=== PATIENT | male | born 1930 | race Caucasian/White ===

== ENCOUNTER 2021-02-13 23:45 | Observation (INO) ==
[2021-02-14] MEDS ORDERED: SODIUM CHLORIDE 0.9% 1000ML 1,000 ML IV SCH ×2 (00:30→06:19)
[2021-02-14 00:31] LABS: Basophils # (auto) 0.03 K/uL (0-0.2); Basophils % (auto) 0.5 %; Eosinophils # (auto) 0.36 K/uL (0-0.5); Eosinophils % (auto) 5.5 %; Hematocrit (blood only) 39.8 % (42-52); Hemoglobin 12.9 g/dL (14.0-18.0); Immature Granulocytes # (auto) 0.02 K/uL (0.00-0.02); Immature Granulocytes % (auto) 0.3 %; Lymphocytes # (auto) 1.34 K/uL (1.2-3.4); Lymphocytes % (auto) 20.3 %; Mean Corpuscular Hemoglobin 31.5 pg (25-34); Mean Corpuscular Hgb Conc 32.4 g/dL (32-36); Mean Corpuscular Volume 97.1 fL (80-100); Mean Platelet Volume 9.5 fL (7.4-10.4); Monocytes # (auto) 0.79 K/uL (0.11-0.59); Neutrophils # (auto) 4.06 K/uL (1.4-6.5); Neutrophils % (auto) 61.4 %; Platelet Count 307 K/uL (130-400); RDW Coefficient of Variation 15.2 % (11.5-14.5); RDW Standard Deviation 53.1 fL (36.4-46.3)
--- NOTE | 2021-02-14 00:40 | Emergency Department Note ---
History of Present Illness General Chief complaint: Confusion Stated complaint: AMS Time Seen by Provider: 02/13/21 23:55 Source: patient and EMS Mode of arrival: EMS Limitations: no limitations History of Present Illness Provider complaint: episode of slurred speech Associated symptoms: + denies other symptoms Treatments prior to arrival: none This is an 89-year-old male brought in by EMS after an episode of slurred speech at home. Patient states he knew what he wanted to tell his family member however he could not get the words out appropriately. Family reported to EMS this lasted 20 to 30 minutes and then seem to resolve by the time of EMS arrival. EMS reports his speech was clear for them throughout. They found no other evidence of strokelike symptoms. No significant hypertension. He states he feels well now. No prior similar episodes. No hx of CVA/TIA. Pt seen during a time of high acuity and national emergency pandemic while wearing PPE. Home Medications Medication Instructions Recorded Confirmed Type acetaminophen 650 mg 650 mg PO Q8H PRN 02/14/21 02/14/21 History tablet,extended release (Tylenol Arthritis Pain) amoxicillin 500 mg capsule 2,000 mg PO UD 02/14/21 02/14/21 History buspirone 5 mg tablet 5 mg PO BID 02/14/21 02/14/21 History calcium carbonate 600 mg calcium 600 mg PO DAILY 02/14/21 02/14/21 History (1,500 mg) tablet cholecalciferol (vitamin D3) 25 25 mcg PO DAILY 02/14/21 02/14/21 History mcg (1,000 unit) tablet (Vitamin D3) ciprofloxacin 0.3 %-dexamethasone 4 drp OTIC (EAR) BID PRN 02/14/21 02/14/21 His tory 0.1 % ear drops,suspension (Ciprodex) famotidine 20 mg tablet (Pepcid) 20 mg PO BID 02/14/21 02/14/21 History ferrous sulfate 325 mg (65 mg 325 mg PO DAILY 02/14/21 02/14/21 History iron) tablet (iron) fluorouracil 0.5 % topical cream 1 applic TOPICAL BID PRN 02/14/21 02/14/21 History folic acid 1 mg tablet 1 mg PO [id number] 02/14/21 02/14/21 History hydrocortisone-acetic acid 1 %-2 % 5 drp OTIC (EAR) BID PRN 02/14/21 02/14/21 History ear drops ibuprofen 200 mg tablet 200 mg PO Q4 PRN 02/14/21 02/14/21 History methotrexate sodium 2.5 mg tablet 10 mg PO WK 02/14/21 02/14/21 History prednisone 5 mg tablet 5 mg PO DAILY 02/14/21 02/14/21 History ropinirole 0.5 mg tablet 0.5 mg PO HS 02/14/21 02/14/21 History Allergies Allergy/AdvReac Type Severity Reaction Status Date / Time No Known Allergies Allergy Verified 02/14/21 03:02 Past Med/Surg History Social History Smoking Status: Former smoker Preferred Language: Australian Feels Safe at Home: Yes Review of Systems A total of 10 systems reviewed and were otherwise negative All systems reviewed & are unremarkable except as noted in HPI & below Physical Exam Vital Signs Vital Signs - 24 hr 02/14/21 00:09 02/14/21 00:30 02/14/21 01:00 Temperature 36.8 C Temperature Source Oral Pulse Rate 61 62 62 Pulse Rate from SpO2 Sensor 62 62 Pulse Rhythm Regular Pulse Strength Normal Respiratory Rate 20 23 20 Respiratory Effort / Characteristics Non-Labored Spontaneous Respiratory Depth Normal Respiratory Pattern Regular Blood Pressure 154/76 H 151/80 H 147/71 H Blood Pressure Mean 102 103 96 Blood Pressure Position Lying Pulse Oximetry 97 95 94 Oxygen Delivery Method Room Air Room Air Room Air Sepsis Recent Fever Within 48 Hours No Sepsis New/Unexplained Change in Mental Status N/A Sepsis Action Taken by Nursing No Action Required 02/14/21 03:24 Temperature Temperature Source Pulse Rate 62 Pulse Rate from SpO2 Sensor Pulse Rhythm Pulse Strength Respiratory Rate 24 Respiratory Effort / Characteristics Respiratory Depth Respiratory Pattern Blood Pressure 163/88 H Blood Pressure Mean 113 Blood Pressure Position Pulse Oximetry 94 Oxygen Delivery Method Room Air Sepsis Recent Fever Within 48 Hours Sepsis New/Unexplained Change in Mental Status Sepsis Action Taken by Nursing GENERAL: alert, well appearing, well nourished, no distress, non-toxic EYE EXAM: normal conjunctiva, PERRL and EOM's grossly intact OROPHARYNX: no exudate, no erythema, lips, buccal mucosa, and tongue normal and mucous membranes are moist NECK: supple, no nuchal rigidity, no adenopathy, non-tender LUNGS: Clear to auscultation. Normal chest wall mechanics, no w/r/r HEART: no murmurs, S1 normal and S2 normal ABDOMEN: abdomen soft, non-tender, normo-active bowel sounds, no masses, no rebound or guarding. BACK: Back is symmetrical on inspection and there is no deformity, no midline tenderness, no CVA tenderness. SKIN: no rashes and no bruising UPPER EXTREMITIES: upper extremities are grossly normal. Significant enlargement noted at the MCP joints bilaterally with ulnar deviation of the phalanges. FROM, nml pulses b/l. LOWER EXTREMITIES: No pitting edema. FROM, nml pulses b/l. NEURO EXAM: Normal sensorium, cranial nerves II-XII grossly intact, normal speech, no gross weakness of arms, no gross weakness of legs. Gross sensation intact. NIHSS 0. Course Course 0240: Patient updated on results. now at bedside. We discussed all results and need for additional evaluation given suspicion of likely TIA. 0255: Discussed with Dr. Rodriguez. Administered Medications Sodium Chloride (Nss 1000ml) 1,000 mls @ 80 mls/hr IV .[id number] EMMA Stop: 02/14/21 18:48 Last Admin: 02/14/21 06:24 Dose: 80 mls/hr Documented by: [id number] Discontinued Medications Aspirin (Aspirin Chew 324 Mg) 324 mg PO NOW STA Stop: 02/14/21 03:44 Last Admin: 02/14/21 04:14 Dose: 324 mg Documented by: [id number] Sodium Chloride (Nss 1000ml) 1,000 mls @ 125 mls/hr IV .Q8H EMMA Stop: 03/16/21 00:29 Last Infusion: 02/14/21 06:23 Dose: 0 mls/hr Documented by: [id number] Admin: 02/14/21 00:30 Dose: 125 mls/hr Documented by: [id number] Ioversol (Optiray 320 125ml) 118 ml IV ONCE ONE Stop: 02/14/21 01:25 Last Admin: 02/14/21 01:24 Dose: 1 ml Documented by: [id number] Medical Decision Making Differential Diagnosis Differential Diagnosis includes but is not limited to ischemic Stroke, hemorrhagic stroke, bells palsy, mass, neoplasm, migraine headache, seizure, subarachnoid hemorrhage, TIA, and transient global amnesia. Medical Records Attestation: I reviewed the patient's medical records. Home Medications Current Medication List: was personally reviewed by me Laboratory Data Attestation: I reviewed the patient's lab results. Result diagrams: 02/14/21 00:00 02/14/21 00:00 Lab Results 02/14/21 02/14/21 02/14/21 Range/Units 00:00 00:00 01:30 WBC 6.60 (4.8-10.8) K/uL RBC 4.10 L (4.7-6.1) M/uL Hgb 12.9 L (14.0-18.0) g/dL Hct 39.8 L (42-52) % MCV 97.1 (80-100) fL MCH 31.5 (25-34) pg MCHC 32.4 (32-36) g/dL RDW Std Deviation 53.1 H (36.4-46.3) fL RDW Coeff of Nikita 15.2 H (11.5-14.5) % Plt Count 307 (130-400) K/uL MPV 9.5 (7.4-10.4) fL Immature Gran % (Auto) 0.3 % Neut % (Auto) 61.4 % Lymph % (Auto) 20.3 % [place] % (Auto) 12.0 % Eos % (Auto) 5.5 % Baso % (Auto) 0.5 % Neut # (Auto) 4.06 (1.4-6.5) K/uL Lymph # (Auto) 1.34 (1.2-3.4) K/uL [place] # (Auto) 0.79 H (0.11-0.59) K/uL Eos # (Auto) 0.36 (0-0.5) K/uL Baso # (Auto) 0.03 (0-0.2) K/uL Immature Gran # (Auto) 0.02 (0.00-0.02) K/uL Sodium 137 (136-145) mmol/L Potassium 3.7 (3.5-5.1) mmol/L Chloride 105 (98-107) mmol/L Carbon Dioxide 28 (21-32) mmol/L Anion Gap 4.0 (3-11) BUN 13 (7-18) mg/dl Creatinine 0.93 (0.6-1.4) mg/dl Est Cr Clr Drug Dosing 55.6 ml/min Est GFR ( Amer) 84.1 ml/min Est GFR (Non-Af Amer) 72.5 ml/min BUN/Creatinine Ratio 13.7 (10-20) Glucose 113 H (70-99) mg/dl Calcium 8.9 (8.5-10.1) mg/dl Magnesium 2.3 (1.8-2.4) mg/dl Total Bilirubin 0.2 (0.2-1) mg/dl AST 21 (15-37) U/L ALT 27 (12-78) U/L Alkaline Phosphatase 86 (45-117) U/L Troponin I < 0.015 (0-0.045) ng/ml NT-Pro-B Natriuret Pep 211 (0-1800) pg/ml Total Protein 7.3 (6.4-8.2) gm/dl Albumin 3.3 L (3.4-5.0) gm/dl Globulin 4.0 (2.5-4.0) gm/dl Albumin/Globulin Ratio 0.8 L (0.9-2) Lipase 103 (73-393) U/L TSH 4.430 (0.300-4.500) uIu/ml Urine Color Yellow Urine Appearance Clear (Clear) Urine pH 6.0 (4.5-7.5) Ur Specific [place] 1.036 H (1.000-1.030) Urine Protein Negative (Negative) Urine Glucose (UA) Negative (Negative) Urine Ketones Negative (Negative) Urine Blood Negative (Negative) Urine Nitrite Negative (Negative) Urine Bilirubin Negative (Negative) Urine Urobilinogen Negative (Negative) Ur Leukocyte Esterase Negative (Negative) SARS-CoV-2, RNA, NAAT (NEGATIVE) 02/14/21 Range/Units 02:30 WBC (4.8-10.8) K/uL RBC (4.7-6.1) M/uL Hgb (14.0-18.0) g/dL Hct (42-52) % MCV (80-100) fL MCH (25-34) pg MCHC (32-36) g/dL RDW Std Deviation (36.4-46.3) fL RDW Coeff of Nikita (11.5-14.5) % Plt Count (130-400) K/uL MPV (7.4-10.4) fL Immature Gran % (Auto) % Neut % (Auto) % Lymph % (Auto) % [place] % (Auto) % Eos % (Auto) % Baso % (Auto) % Neut # (Auto) (1.4-6.5) K/uL Lymph # (Auto) (1.2-3.4) K/uL [place] # (Auto) (0.11-0.59) K/uL Eos # (Auto) (0-0.5) K/uL Baso # (Auto) (0-0.2) K/uL Immature Gran # (Auto) (0.00-0.02) K/uL Sodium (136-145) mmol/L Potassium (3.5-5.1) mmol/L Chloride (98-107) mmol/L Carbon Dioxide (21-32) mmol/L Anion Gap (3-11) BUN (7-18) mg/dl Creatinine (0.6-1.4) mg/dl Est Cr Clr Drug Dosing ml/min Est GFR ( Amer) ml/min Est GFR (Non-Af Amer) ml/min BUN/Creatinine Ratio (10-20) Glucose (70-99) mg/dl Calcium (8.5-10.1) mg/dl Magnesium (1.8-2.4) mg/dl Total Bilirubin (0.2-1) mg/dl AST (15-37) U/L ALT (12-78) U/L Alkaline Phosphatase (45-117) U/L Troponin I (0-0.045) ng/ml NT-Pro-B Natriuret Pep (0-1800) pg/ml Total Protein (6.4-8.2) gm/dl Albumin (3.4-5.0) gm/dl Globulin (2.5-4.0) gm/dl Albumin/Globulin Ratio (0.9-2) Lipase (73-393) U/L TSH (0.300-4.500) uIu/ml Urine Color Urine Appearance (Clear) Urine pH (4.5-7.5) Ur Specific [place] (1.000-1.030) Urine Protein (Negative) Urine Glucose (UA) (Negative) Urine Ketones (Negative) Urine Blood (Negative) Urine Nitrite (Negative) Urine Bilirubin (Negative) Urine Urobilinogen (Negative) Ur Leukocyte Esterase (Negative) SARS-CoV-2, RNA, NAAT NEGATIVE (NEGATIVE) Imaging Data Radiologist's Impression: CT head: Mild central atrophy and periventricular white matter low-density consistent with chronic small vessel disease and/or senescent changes. There is no evidenc e of acute large vessel infarct or intracranial hemorrhage. The paranasal sinuses and mastoid air cells are within normal limits. No skull fracture or scalp hematoma seen. Radiologist: Marshall Case MD CTA head: There is mild calcified plaque in the cavernous portions of the distal interloba r arteries bilaterally with up to 20% stenosis bilaterally. The distal right vertebral artery is small and demonstrates 50% stenosis distally. The left vertebral and basilar arteries are widely patent. 50% stenosis of the proximal left posterior cerebral artery. The anterior, middle, and posterior cerebral arteries are otherwise within normal limits. No aneurysm, vascular malformation, or arterial thrombus is identified. Radiologist: Marshall Case MD CTA neck: The aortic arch measures 3.6 cm in diameter. There is no dissection. The great vessel origins widely patent. The common carotid artery is tortuous but widely patent. There is calcified plaque in the right carotid bifurcation with less than 20% stenosis of the common and internal carotid arteries. Left common carotid artery is tortuous but widely patent. There is a small amount of calcified plaque in the left carotid bifurcation with no measurable stenosis of the common or internal carotid arteries. Right vertebral artery is congenitally small measuring 3 mm. No focal stenosis or dissection is seen within the c ervical section. Left vertebral artery is widely patent. No stenosis or dissection. Mild to moderate degenerative changes in the cervical spine. No acute fracture subluxation. Radiologist: Marshall Csae MD ECG Data Attestation: I personally reviewed and interpreted this ECG as follows: Indication: + other Rate (beats per minute): 61 Rhythm: + normal sinus ECG Intervals/blocks: + First degree AV block, + Normal QRS and + Normal QT ECG [place]: + Normal ECG ST segments: + Nonspecific ST abnormalities MDM Narrative This is an 89-year-old male presents emergency department via EMS after an episode of dysarthria lasting 20 to 30 minutes. Patient had a normal neuro exam here, no focal deficits, NIH stroke score was 0. Patient sent for CT imaging which was unremarkable. Patient's labs reassuring. Patient was afebrile and hemodynamically stable throughout. Discussed with patient concern given condition as well as risk factors, he verbalized understanding as did at bedside. Case discussed with hospitalist for additional inpatient evaluation and management. An order was placed for continuous cardiac monitoring. The monitor shows a rate of _70_ with _normal sinus_ rhythm. Impression & Plan Dysarthria, TIA (transient ischemic attack), Rheumatoid arthritis Discharge Plan Visit Data Chief Complaint: Confusion Stated Complaint: AMS ED Provider: Mary Rooney Discharge Problem: Dysarthria, TIA (transient ischemic attack), Rheumatoid arthritis Patient Disposition: Admitted As Inpatient Discharge Instructions Interventions: ED Discharge Assessment Last Done: 02/14/21 06:17 Discharge Problem: Rheumatoid arthritis Qualifiers: Rheumatoid arthritis location: multiple sites Rheumatoid factor presence: unspecified presence Qualified Code(s): M06.9 - Rheumatoid arthritis, unspecified
[2021-02-14 00:55] LABS: Alanine Aminotransferase 27 U/L (12-78); Albumin Level 3.3 gm/dl (3.4-5.0); Aspartate Aminotransferase 21 U/L (15-37); BUN Creatinine Ratio 13.7 (10-20); Blood Urea Nitrogen 13 mg/dl (7-18); Calcium 8.9 mg/dl (8.5-10.1); Carbon Dioxide 28 mmol/L (21-32); Chloride 105 mmol/L (98-107); Creatinine Clr Calc Pharmacy 55.6 ml/min; Est GFR (African American) 84.1 ml/min; Est GFR (Non-African American) 72.5 ml/min; Glucose 113 mg/dl (70-99); Lipase 103 U/L (73-393); Magnesium 2.3 mg/dl (1.8-2.4); Potassium 3.7 mmol/L (3.5-5.1); Sodium 137 mmol/L (136-145)
[2021-02-14 01:06] LABS: Albumin Globulin Ratio 0.8 (0.9-2); Alkaline Phosphatase 86 U/L (45-117); Bilirubin,Total 0.2 mg/dl (0.2-1); NT Pro B Type Natriuretic Pept 211 pg/ml (0-1800); Total Protein 7.3 gm/dl (6.4-8.2); Troponin I < 0.015 ng/ml (0-0.045)
[2021-02-14] MEDS ORDERED: OPTIRAY 320 125ml IV ONE (01:24)
[2021-02-14 03:37] LABS: Appearance Urine Clear (Clear); Bilirubin Urine Negative (Negative); Blood Urine Negative (Negative); Color Urine Yellow; Glucose Urine UA Negative (Negative); Ketones Urine Negative (Negative); Leukocyte Esterase Urine Negative (Negative); Nitrite Urine Negative (Negative); Protein Urine Negative (Negative); Specific Gravity Urine 1.036 (1.000-1.030); Urobilinogen Urine Negative (Negative)
[2021-02-14] MEDS ORDERED: ASPIRIN CHEW 324 MG PO STA (03:43)
--- NOTE | 2021-02-14 06:01 | History and Physical Report ---
DATE OF ADMISSION: 02/14/2021. CHIEF COMPLAINT: Word finding difficulty. HISTORY OF PRESENT ILLNESS: This is an 89-year-old male with past medical history significant for obstructive lung disease, GERD, diverticulosis of colon, CKD stage II, osteoarthritis, perforated eardrum bilateral, mixed hearing loss bilateral, presbycusis, rheumatoid arthritis involving multiple joints, who lives at home with his , was brought in because of word finding difficulty around 10:00 p.m. The says that the patient know what he is talking, but he is not able to bring out the words, it lasted for 15 minutes then ambulance brought him to hospital. Currently, he is alert and oriented. Speech is clear. Initial workup with a CT of the head and CTA of the head and neck, no acute findings. He is resting comfortably, hemodynamically stable. Denies any chest pain, no shortness of breath, no cough, no fever, no chills, no headache, no double vision. No ear earache, very hard of hearing. Has chronic cough. No runny nose, no sore throat, no fevers. Appetite is good. Swallowing fine, no nausea, no abdominal pain, normal bowel and bladder movements. Once in a while he is constipated. No swelling in the legs. Ambulates with a cane or walker at home. ALLERGIES: No known drug allergies. PAST MEDICAL HISTORY: As mentioned above. PAST SURGICAL HISTORY: Bilateral total knee replacements, colonoscopy, knee arthroscopy, tonsillectomy, adenoidectomy, repair of inguinal hernia. MEDICATIONS: Tylenol 650 mg p.o. q. 8 hours p.r.n., amoxicillin 2 g p.r.n., buspirone 5 mg p.o. b.i.d., calcium carbonate 600 mg p.o. daily, vitamin D 25 mcg p.o. daily, Ciprodex 4 drops ophthalmic b.i.d. p.r.n., Pepcid 20 mg p.o. b.i.d., ferrous sulfate 325 mg p.o. daily, fluorouracil topical b.i.d. p.r.n., folic acid 1 mg p.o. x 6 a week, methotrexate 10 mg p.o. weekly, prednisone 5 mg p.o. daily, ropinirole 0.5 mg p.o. at bedtime. FAMILY HISTORY: Significant for sister has bone cancer, father has lung disorder. Mother has diabetes; brother has lung cancer, brother has prostate cancer. SOCIAL HISTORY: . Quit smoking in 1980s, smoked 1 pack a day for 40 years. Alcohol rarely. No drug use. REVIEW OF SYSTEMS: As per HPI. Rest of the review of systems is negative. PHYSICAL EXAMINATION: GENERAL: The patient is old and frail, not in acute distress. VITAL SIGNS: Temperature 36.8, pulse 62, respiratory rate 24, blood pressure 163/88, oxygen 95% on room air. HEENT: Pupils equal, round and reactive to light. Extraocular muscles intact. Oral mucosa moist. NECK: No JVD or neck masses. CARDIOVASCULAR: S1 and S2 heard. Regular rate and rhythm. No murmur, no gallop. RESPIRATORY SYSTEM: Normal AP diameter. No accessory muscle use. No wheezing, no crackles. ABDOMEN: Soft, bowel sounds present, nontender, no distention. CENTRAL NERVOUS SYSTEM: Alert and oriented. Extraocular muscles intact. Speech is clear. No facial droop. Power 5/5 in all extremities. Sensation intact. No pronator drift. EXTREMITIES: No edema, no erythema. LABORATORY DATA: WBC 6.6, hemoglobin 12.9, hematocrit 39.8, platelets 307. Sodium 137, potassium 3.7, chloride 105, bicarbonate 28, BUN 13, creatinine 0.9, serum glucose 113, calcium 8.9, magnesium 2.3, total bilirubin 0.2, AST 21, ALT 27, alkaline phosphatase 86. Troponin I less than 0.015. BNP 211. Lipase 103. TSH 4.4. Urinalysis negative. SARS-CoV-2 RNA negative. IMAGING DATA: CTA of the neck No significant stenosis, occlusion, or dissection identified within the carotid or vertebral arteries. Scattered tree-in-bud nodular opacities within the right upper lobe. This favors a mild chronic infectious bronchiolitis. CTA of the head, 1. Atherosclerotic vascular disease without aneurysm, high- grade stenosis, dissection or arterial occlusion. 2. 50% luminal narrowing of the distal V4 segment right vertebral artery. 3. 50% luminal narrowing involves the proximal P1 segments of the posterior cerebral arteries. CT of the head without contrast, no acute findings seen. Chest x-ray no acute findings. EKG: Sinus rhythm with first-degree AV block at rate of 61. ASSESSMENT AND PLAN: This is an 89-year-old male who presents with transient ischemic attack-like symptoms. 1. Transient ischemic attack-like symptoms. The patient had word finding difficulty for 15 minutes and resolved. Initial workup with CTA of the head and neck and CT of the head preliminary report is unremarkable. We will follow the final report. We will do full stroke workup with MRI scan and echo. Started him on aspirin and neuro consult and speech consult, PT-OT. Monitor in the med tele floor. 2. History of rheumatoid arthritis. Continue his home medication of prednisone, methotrexate. 3. History of gastroesophageal reflux disease: Continue Pepcid. 4. History of chronic kidney disease, stage II. We will follow the labs. 5. Deep venous thrombosis prophylaxis: Sequential compression devices for now. DISPOSITION: Monitor in the [employer] tele. PT/OT prior to discharge. Social service to help with discharge planning. Job ID: [id number] MTDD
[2021-02-14] MEDS ORDERED: PHARMACIST DISCHARGE MED REC CONSULT PRN (06:19)
[2021-02-14] MEDS ORDERED: NITROGLYCERIN SL 0.4 MG/TAB TAB SL PRN (06:19)
[2021-02-14] MEDS ORDERED: ONDANSETRON INJ 2 MG/ML 2 ML VIAL IV PRN (06:19)
[2021-02-14] MEDS ORDERED: ACETAMINOPHEN 325 MG TAB PO PRN (06:19)
--- NOTE | 2021-02-14 07:42 | Electrocardiogram Report ---
Test Reason : Blood Pressure : / mmHG Vent. Rate : 061 BPM Atrial Rate : 061 BPM P-R Int : 232 ms QRS Dur : 090 ms QT Int : 410 ms P-R-T Axes : 057 005 024 degrees QTc Int : 412 ms Sinus rhythm with 1st degree A-V block Inferior infarct (cited on or before 13-FEB-2021) Abnormal ECG When compared with ECG of 21-MAY-1999 10:59, TN interval has increased Confirmed by Elías Abarca ([id number]) on 02/14/2021 7:42:26 AM Referred By: REFERRED SELF Confirmed By:Harsha Abarca
--- NOTE | 2021-02-14 08:03 | CT Scan Report ---
CT angio head w con CLINICAL HISTORY: 89 years-old Male with slurred speech. Acute strokelike symptoms COMPARISON STUDY: Head CT and CTA head and neck studies of same day TECHNIQUE: Following the IV administration of 118 cc of Optiray, CT angiogram of the brain was perfor med from the skull base to the vertex. Images are reviewed in the axial, sagittal, and coronal planes . 3-D MIPS images are created and assessed. IV contrast was administered without complication. All me asurements were obtained according to NASCET criteria. A dose lowering technique was utilized adherin g to the principles of ALARA. FINDINGS: Atherosclerosis of the cavernous and supraclinoid segments of the internal carotid arteries without significant stenosis. There is mild multifocal luminal narrowing of the middle and anterior cerebral arteries. Dominant left vertebral artery. 50% luminal narrowing of the distal V4 segment rig ht vertebral artery on image 50 series 4. The basilar artery is patent. There is approximately 50% nazario lissy narrowing of the proximal P1 segments of the posterior cerebral arteries. No aneurysm, dissecti on, high-grade stenosis or arterial occlusion. The cerebral venous sinuses are patent. There is no ab normal intracranial enhancement. Unremarkable soft tissues. Prior bilateral lens repair. Moderate mucosal thickening of the ethmoid ai r cells. IMPRESSION: 1. Atherosclerotic vascular disease without aneurysm, high-grade stenosis, dissection or arterial occ lusion. 2. 50% luminal narrowing of the distal V4 segment right vertebral artery. 3. 50% luminal narrowing involves the proximal P1 segments of the posterior cerebral arteries. ACT 112: Negative or not required by law. The above report was generated using voice recognition software. It may contain grammatical, syntax o r spelling errors. Electronically signed by: Bennie Tyler M.D. 02/14/2021 8:02 AM
--- NOTE | 2021-02-14 08:18 | CT Scan Report ---
HEAD CT NONCONTRAST CT DOSE: HISTORY: episode of slurred speech TECHNIQUE: Multiaxial CT images of the head were performed without the use of intravenous contrast. A utomated exposure control was utilized for this study. A dose lowering technique was utilized adheri ng to the principles of ALARA. Comparison: None. Findings: The paranasal sinuses are clear. Small bilateral mastoid effusions are noted. The calvarium and skull base are intact. There is no mass, hematoma, midline shift, acute infarct. White matter hy podensity is nonspecific but suggestive of microvascular ischemic change. The ventricles and sulci de monstrate mild age-related involutional changes. Impression: No acute intracranial abnormality. Atrophy and microvascular ischemic changes. ACT 112: Negative or not required by law. Electronically signed by: Shon Linder M.D. 02/14/2021 8:16 AM
--- NOTE | 2021-02-14 08:20 | CT Scan Report ---
NECK CTA HISTORY: slurred speech TECHNIQUE: Multiaxial CT images of the neck were performed following the intravenous administration o f contrast to evaluate the major cervical vessels. Maximum intensity projection images were also obta ined. All measurements were calculated based on NASCET criteria. A dose lowering technique was utili zed adhering to the principles of ALARA. COMPARISON STUDY: None. FINDINGS: The aortic arch and proximal great vessels are widely patent. There is no significant sten osis, occlusion, or dissection identified within the bilateral common carotid, internal carotid, or v ertebral arteries. Mild emphysema. Scattered tree-in-bud nodular opacities within the right upper lob e. This favors a mild chronic infectious bronchiolitis. Mild calcified plaque within the bilateral ca rotid bifurcations. There is a tortuous right common carotid artery. IMPRESSION: No significant stenosis, occlusion, or dissection identified within the carotid or vertebral arteries . Scattered tree-in-bud nodular opacities within the right upper lobe. This favors a mild chronic inf ectious bronchiolitis. ACT 112: Negative or not required by law. Electronically signed by: Shon Linder M.D. 02/14/2021 8:19 AM
[2021-02-14] MEDS ORDERED: metHOTREXate sodium 2.5 MG TAB PO SCH (09:00)
[2021-02-14] MEDS ORDERED: busPIRone 5 MG TAB PO SCH (09:00)
[2021-02-14] MEDS ORDERED: CIPRO 0.3%/DEXAMETHASONE 0.1% OTIC SUSP 7.5ML OT SCH (09:00)
[2021-02-14] MEDS ORDERED: FAMOTIDINE 20 MG TAB PO SCH (09:00)
[2021-02-14] MEDS ORDERED: CHOLECALCIFEROL 1,000 UNITS 25 MCG TAB PO SCH (09:00)
[2021-02-14] MEDS ORDERED: ASPIRIN 81 MG ECTAB PO SCH (09:00)
[2021-02-14] MEDS ORDERED: FERROUS SULFATE 325 MG TAB PO SCH (09:00)
[2021-02-14] MEDS ORDERED: predniSONE 5 MG TAB PO SCH (09:00)
[2021-02-14] MEDS ORDERED: CALCIUM CARBONATE 1250MG TAB PO SCH (09:00)
--- NOTE | 2021-02-14 09:00 | XRay Report ---
XR chest 1V portable HISTORY: slurred speech COMPARISON: None. FINDINGS: No pneumothorax. The cardiac silhouette is mildly enlarged. No pleural effusions. No focal lung consolidations to suggest pneumonia. Mild interstitial thickening which is likely chronic. No ev idence for pulmonary edema. IMPRESSION: Cardiomegaly with mild diffuse interstitial thickening. This is likely chronic. ACT 112: Negative or not required by law. Electronically signed by: Shon Linder M.D. 02/14/2021 8:58 AM
[2021-02-14] MEDS ORDERED: GADOBUTROL 65ML VIAL IV ONE (12:16)
--- NOTE | 2021-02-14 12:49 | Magnetic Resonance Report ---
MR brain wo/w con HISTORY: 89 years-old Male tia acute strokelike symptoms COMPARISON: CT head, CTA head and neck studies of same day TECHNIQUE: Multiplanar multisequence MRI of the brain was obtained both with and and without the use of 8.0 cc Gadavist FINDINGS: Protection Consultant localizer images demonstrate no gross extracranial abnormality. Motion degraded exam. No restri cted diffusion to suggest acute or subacute infarct. Partially empty sella. No pathologic blooming ar tifact. No acute intracranial hemorrhage, midline shift, abnormal extra-axial collection, hydrocephal us or intra-axial mass. Age-related involutional changes. Mild patchy T2/FLAIR hyperintense foci thro ughout the white matter suggest chronic microvascular ischemic disease. There is no abnormal intra-ax ial or extra-axial enhancement. Cerebral venous sinuses and major arterial flow voids are patent. Right greater than left mastoid eff usions. Mild mucosal thickening of the paranasal sinuses. The skull, orbits and soft tissues are unre markable. Prior bilateral lens repair. IMPRESSION: 1. No acute intracranial abnormality. No acute or subacute infarct. 2. Involutional changes with mild chronic microvascular ischemic disease. 3. No abnormal enhancement. 4. Moderate mastoid effusions. ACT 112: Negative or not required by law. The above report was generated using voice recognition software. It may contain grammatical, syntax o r spelling errors. Electronically signed by: Bennie Tyler M.D. 02/14/2021 12:47 PM
--- NOTE | 2021-02-14 13:11 | Consultation Report ---
NEUROLOGY CONSULTATION DATE OF CONSULTATION: 02/14/2021. CHIEF COMPLAINT: Word finding difficulty. HISTORY OF PRESENT ILLNESS: An 89-year-old male with a history of COPD, chronic kidney disease, rheu matoid arthritis and bilateral hearing loss, presenting to the Emergency Room late last night for wor d finding difficulty. The patient was unable to bring out the words he wanted and symptoms lasted fo r about 15 minutes. Upon evaluation in the Emergency Department, speech was clear. He underwent a C T stroke workup including a CT of the head and CTA of the head and neck. There were no acute finding s. The patient was admitted for possible transient ischemic attack and neurology was consulted upon admission. ALLERGIES: No known drug allergies. 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 PAST SURGICAL HISTORY: Bilateral total knee replacements, colonoscopy, knee arthroscopy, tonsillecto my, adenoidectomy, repair of inguinal hernia. HOME MEDICATIONS: Tylenol, vitamin D, buspirone, methotrexate, prednisone 5 mg daily, ropinirole 5 m g at night. FAMILY HISTORY: Sister had bone cancer, father had lung disorder, mother had diabetes, brother had l damian cancer, brother had prostate cancer. SOCIAL HISTORY: Former smoker, quit smoking in the . Rarely uses alcohol. No drug use history . REVIEW OF SYSTEMS: Pertinent for word finding difficulty. Otherwise, all other review of systems wa s negative. PHYSICAL EXAMINATION: VITAL SIGNS: Blood pressure 162/73, pulse of 68, respiratory rate 21, temperature is 36.8 degrees Ce lsius, oxygen saturation is 92% on room air. GENERAL: The patient appears his stated age, in no distress. HEENT: Head is normocephalic and atraumatic. NECK: Supple. Eyes are midline. Normal conjunctivae. LUNGS: Normal respiratory effort. CARDIAC: Pulses are intact. SKIN: No skin rash. PSYCHIATRIC: Normal mood. NEUROLOGIC: The patient is awake, alert, oriented to person, place, and time. His attention is norm al. Knowledge is appropriate. His comprehension is intact. Speech is clear. Pupils are symmetric. Extraocular muscles intact. Facial sensation is intact. No facial asymmetry. Hearing is impaired . Tongue is midline. Gait evaluation is deferred. No tremor, no ataxia with [id number] testing . Sensation is intact to light touch. Muscle tone is normal. Muscle strength 5/5. Reflexes are ne gative Odalys sign and no ankle clonus. DIAGNOSTIC TESTING AND LABORATORY VALUES: WBC 6.6, hemoglobin 12.9, platelet count 307. Sodium 137, potassium 3.7, chloride 105, carbon dioxide 28, BUN 13, creatinine 0.93, magnesium 2.3, AST 21, ALT 27. TSH 4.43. Urinalysis was negative. IMAGING: Head and neck CTA showed no significant stenosis, occlusion or dissection. Scattered tree- in-bud nodular opacities within the right upper lobe of the lung. Atherosclerotic vascular disease w ithout aneurysm, high-grade stenosis or dissection or arterial occlusion, 50% luminal narrowing of th e distal right vertebral artery, 50% luminal narrowing involving the proximal posterior cerebral michelle cherelle. MRI of the brain is currently pending; however, review of the imaging independently shows gene ralized cerebral atrophy with ventriculomegaly consistent with hydrocephalus ex vacuo. Diffusion david ghted imaging shows no evidence of acute stroke. T2 FLAIR imaging coronals showed mild to minimal sinha bcortical white matter changes. There is a T2 hyperintensity noted in the periventricular area on th e left, which is nonspecific. ASSESSMENT AND PLAN: An 89-year-old male with no prior history of stroke or transient ischemic attac k, admitted with brief episode of expressive aphasia, concerning for possible transient ischemic libia ck. MRI of the brain shows no evidence of acute ischemic stroke on my review. CTA of the head and n david shows no high-grade stenosis. Recommend normotension, systolic blood pressure less than 140, yaakov stolic blood pressure less than 90. Recommend starting aspirin 81 mg daily and Plavix 75 mg daily fo r 21 days, then I would deescalate to aspirin 81 mg daily for secondary stroke prevention. Recommend starting Lipitor 40 mg daily. I would obtain lipid panel and hemoglobin A1c if not already complete d. Telemetry while admitted. Physical therapy and occupational therapy for any rehabilitation needs . Neurology followup in 2-3 months. Job ID: [id number]
--- NOTE | 2021-02-14 16:41 | Discharge Summary ---
Date of Service February 14, 2021 Admission HPI Per Admitting Provider HISTORY OF PRESENT ILLNESS: This is an 89-year-old male with past medical history significant for obstructive lung disease, GERD, diverticulosis of colon, CKD stage II, osteoarthritis, perforated eardrum bilateral, mixed hearing loss bilateral, presbycusis, rheumatoid arthritis involving multiple joints, who lives at home with his , was brought in because of word finding difficulty around 10:00 p.m. The says that the patient know what he is talking, but he is not able to bring out the words, it lasted for 15 minutes then ambulance brought him to hospital. Currently, he is alert and oriented. Speech is clear. Initial workup with a CT of the head and CTA of the head and neck, no acute findings. He is resting comfortably, hemodynamically stable. Denies any chest pain, no shortness of breath, no cough, no fever, no chills, no headache, no double vision. No ear earache, very hard of hearing. Has chronic cough. No runny nose, no sore throat, no fevers. Appetite is good. Swallowing fine, no nausea, no abdominal pain, normal bowel and bladder movements. Once in a while he is constipated. No swelling in the legs. Ambulates with a cane or walker at home. Admission Exam Per Admitting Provider PHYSICAL EXAMINATION: GENERAL: The patient is old and frail, not in acute distress. VITAL SIGNS: Temperature 36.8, pulse 62, respiratory rate 24, blood pressure 163/88, oxygen 95% on room air. HEENT: Pupils equal, round and reactive to light. Extraocular muscles intact. Oral mucosa moist. NECK: No JVD or neck masses. CARDIOVASCULAR: S1 and S2 heard. Regular rate and rhythm. No murmur, no gallop. RESPIRATORY SYSTEM: Normal AP diameter. No accessory muscle use. No wheezing, no crackles. ABDOMEN: Soft, bowel sounds present, nontender, no distention. CENTRAL NERVOUS SYSTEM: Alert and oriented. Extraocular muscles intact. Speech is clear. No facial droop. Power 5/5 in all extremities. Sensation int act. No pronator drift. EXTREMITIES: No edema, no erythema. Principal Diagnosis TIA Discharge Exam CONSTITUTIONAL: WNWD, vitals stable aside from sliht elevation in blood pressure, generally well-appearing, NAD EYES: EOMI bilaterally, pupils were round and equal bilaterally, normal conjunctivae, no scleral icterus ENT: external ear and nose normal NECK: trachea midline RESPIRATORY: clear to auscultation bilaterally, no crackles, rales or wheezes, normal respiratory effort CARDIOVASCULAR: regular rate and rhythm, S1 and 2 heard without murmurs, gallops or rubs, no JVD, no peripheral edema GASTROINTESTINAL: soft, nontender, ND, no guarding MUSCULOSKELETAL: strength 5/5 throughout, head is normocephalic and atraumatic, neck supple, normal palpation of chest wall without tenderness SKIN: warm and dry NEUROLOGIC: CN 2-12 grossly intact, no sensory deficit, normal cognition, cliff l speech, no tremor PSYCHIATRIC: alert cooperative and oriented to person, place and time. Discharge Data Allergies Allergy/AdvReac Type Severity Reaction Status Date / Time No Known Allergies Allergy Verified 02/14/21 03:02 Consultations 02/14/21 02:58 ED Decision to Admit Stat 02/14/21 08:00 Consult Neurology Routine Ordered Studies Laboratory Results WBC 6.60 K/uL (4.8-10.8) 02/14/21 00:00 RBC 4.10 M/uL (4.7-6.1) L 02/14/21 00:00 Hgb 12.9 g/dL (14.0-18.0) L 02/14/21 00:00 Hct 39.8 % (42-52) L 02/14/21 00:00 MCV 97.1 fL (80-100) 02/14/21 00:00 MCH 31.5 pg (25-34) 02/14/21 00:00 MCHC 32.4 g/dL (32-36) 02/14/21 00:00 RDW Std Deviation 53.1 fL (36.4-46.3) H 02/14/21 00:00 RDW Coeff of Nikita 15.2 % (11.5-14.5) H 02/14/21 00:00 Plt Count 307 K/uL (130-400) 02/14/21 00:00 MPV 9.5 fL (7.4-10.4) 02/14/21 00:00 Immature Gran % (Auto) 0.3 % 02/14/21 00:00 Neut % (Auto) 61.4 % 02/14/21 00:00 Lymph % (Auto) 20.3 % 02/14/21 00:00 Emmons % (Auto) 12.0 % 02/14/21 00:00 Eos % (Auto) 5.5 % 02/14/21 00:00 Baso % (Auto) 0.5 % 02/14/21 00:00 Neut # (Auto) 4.06 K/uL (1.4-6.5) 02/14/21 00:00 Lymph # (Auto) 1.34 K/uL (1.2-3.4) 02/14/21 00:00 Emmons # (Auto) 0.79 K/uL (0.11-0.59) H 02/14/21 00:00 Eos # (Auto) 0.36 K/uL (0-0.5) 02/14/21 00:00 Baso # (Auto) 0.03 K/uL (0-0.2) 02/14/21 00:00 Immature Gran # (Auto) 0.02 K/uL (0.00-0.02) 02/14/21 00:00 Sodium 137 mmol/L (136-145) 02/14/21 00:00 Potassium 3.7 mmol/L (3.5-5.1) 02/14/21 00:00 Chloride 105 mmol/L (98-107) 02/14/21 00:00 Carbon Dioxide 28 mmol/L (21-32) 02/14/21 00:00 Anion Gap 4.0 (3-11) 02/14/21 00:00 BUN 13 mg/dl (7-18) 02/14/21 00:00 Creatinine 0.93 mg/dl (0.6-1.4) 02/14/21 00:00 Est Cr Clr Drug Dosing 55.6 ml/min 02/14/21 00:00 Est GFR ( Amer) 84.1 ml/min 02/14/21 00:00 Est GFR (Non-Af Amer) 72.5 ml/min 02/14/21 00:00 BUN/Creatinine Ratio 13.7 (10-20) 02/14/21 00:00 Glucose 113 mg/dl (70-99) H 02/14/21 00:00 Calcium 8.9 mg/dl (8.5-10.1) 02/14/21 00:00 Magnesium 2.3 mg/dl (1.8-2.4) 02/14/21 00:00 Total Bilirubin 0.2 mg/dl (0.2-1) 02/14/21 00:00 AST 21 U/L (15-37) 02/14/21 00:00 ALT 27 U/L (12-78) 02/14/21 00:00 Alkaline Phosphatase 86 U/L (45-117) 02/14/21 00:00 Troponin I < 0.015 ng/ml (0-0.045) 02/14/21 00:00 NT-Pro-B Natriuret Pep 211 pg/ml (0-1800) 02/14/21 00:00 Total Protein 7.3 gm/dl (6.4-8.2) 02/14/21 00:00 Albumin 3.3 gm/dl (3.4-5.0) L 02/14/21 00:00 Globulin 4.0 gm/dl (2.5-4.0) 02/14/21 00:00 Albumin/Globulin Ratio 0.8 (0.9-2) L 02/14/21 00:00 Lipase 103 U/L (73-393) 02/14/21 00:00 TSH 4.430 uIu/ml (0.300-4.500) 02/14/21 00:00 Urine Color Yellow 02/14/21 01:30 Urine Appearance Clear (Clear) 02/14/21 01:30 Urine pH 6.0 (4.5-7.5) 02/14/21 01:30 Ur Specific [place]ffe 1.036 (1.000-1.030) H 02/14/21 01:30 Urine Protein Negative (Negative) 02/14/21 01:30 Urine Glucose (UA) Negative (Negative) 02/14/21 01:30 Urine Ketones Negative (Negative) 02/14/21 01:30 Urine Blood Negative (Negative) 02/14/21 01:30 Urine Nitrite Negative (Negative) 02/14/21 01:30 Urine Bilirubin Negative (Negative) 02/14/21 01:30 Urine Urobilinogen Negative (Negative) 02/14/21 01:30 Ur Leukocyte Esterase Negative (Negative) 02/14/21 01:30 SARS-CoV-2, RNA, NAAT NEGATIVE (NEGATIVE) 02/14/21 02:30 Impressions Chest X-Ray 02/14/21 00:18 XR chest 1V portable HISTORY: slurred speech COMPARISON: None. FINDINGS: No pneumothorax. The cardiac silhouette is mildly enlarged. No pleural effusions. No focal lung consolidations to suggest pneumonia. Mild interstitial thickening which is likely chronic. No evidence for pulmonary edema. IMPRESSION: Cardiomegaly with mild diffuse interstitial thickening. This is likely chronic. ACT 112: Negative or not required by law. Electronically signed by: Shon Linder M.D. 02/14/2021 8:[address] 02/14/21 00:[address] DOSE: HISTORY: episode of slurred speech TECHNIQUE: Multiaxial CT images of the head were performed without the use of intravenous contrast. Automated exposure control was utilized for this study. A dose lowering technique was utilized adhering to the principles of ALARA. Comparison: None. Findings: The paranasal sinuses are clear. Small bilateral mastoid effusions are noted. The calvarium and skull base are intact. There is no mass, hematoma, midline shift, acute infarct. White matter hypodensity is nonspecific but sugge stive of microvascular ischemic change. The ventricles and sulci demonstrate mild age-related involutional changes. Impression: No acute intracranial abnormality. Atrophy and microvascular ischemic changes. ACT 112: Negative or not required by law. Electronically signed by: hSon Linder M.D. 02/14/2021 8:16 AM Head CTA 02/14/21 00:18 CT angio head w con CLINICAL HISTORY: 89 years-old Male with slurred speech. Acute strokelike symptoms COMPARISON STUDY: Head CT and CTA head and neck studies of same day TECHNIQUE: Following the IV administration of 118 cc of Optiray, CT angiogram of the brain was performed from the skull base to the vertex. Images are reviewed in the axial, sagittal, and coronal planes. 3-D MIPS images are created and assessed. IV contrast was administered without complication. All measurements were obtained according to NASCET criteria. A dose lowering technique was utilized adhering to the principles of ALARA. FINDINGS: Atherosclerosis of the cavernous and supraclinoid segments of the internal carotid arteries without significant stenosis. There is mild multifocal luminal narrowing of the middle and anterior cerebral arteries. Dominant left vertebral artery. 50% luminal narrowing of the distal V4 segment right vertebral artery on image 50 series 4. The basilar artery is patent. There is approximately 50% luminal narrowing of the proximal P1 segments of the posterior cerebral arteries. No aneurysm, dissection, high-grade stenosis or arterial occlusion. The cerebral venous sinuses are patent. There is no abnormal intracranial enhancement. Unremarkable soft tissues. Prior bilateral lens repair. Moderate mucosal thickening of the ethmoid air cells. IMPRESSION: 1. Atherosclerotic vascular disease without aneurysm, high-grade stenosis, dissection or arterial occlusion. 2. 50% luminal narrowing of the distal V4 segment right vertebral artery. 3. 50% luminal narrowing involves the proximal P1 segments of the posterior cerebral arteries. ACT 112: Negative or not required by law. The above report was generated using voice recognition software. It may contain grammatical, syntax or spelling errors. Electronically signed by: Bennie Tyler M.D. 02/14/2021 8:02 AM Neck CTA 02/14/21 00:18 NECK CTA HISTORY: slurred speech TECHNIQUE: Multiaxial CT images of the neck were performed following the intravenous administration of contrast to evaluate the major cervical vessels. Maximum intensity projection images were also obtained. All measurements were calculated based on NASCET criteria. A dose lowering technique was utilized adhering to the principles of ALARA. COMPARISON STUDY: None. FINDINGS: The aortic arch and proximal great vessels are widely patent. There is no significant stenosis, occlusion, or dissection identified within the bilateral common carotid, internal carotid, or vertebral arteries. Mild emphysema. Scattered tree-in-bud nodular opacities within the right upper lobe. This favors a mild chronic infectious bronchiolitis. Mild calcified plaque within the bilateral carotid bifurcations. There is a tortuous right common carotid artery. IMPRESSION: No significant stenosis, occlusion, or dissection identified within the carotid or vertebral arteries. Scattered tree-in-bud nodular opacities within the right upper lobe. This favors a mild chronic infectious bronchiolitis. ACT 112: Negative or not required by law. Electronically signed by: Shon Linder M.D. 02/14/2021 8:19 AM Brain MRI 02/14/21 06:19 MR brain wo/w con HISTORY: 89 years-old Male tia acute strokelike symptoms COMPARISON: CT head, CTA head and neck studies of same day TECHNIQUE: Multiplanar multisequence MRI of the brain was obtained both with and and without the use of 8.0 cc Gadavist FINDINGS: Metal Milling Machine Operator localizer images demonstrate no gross extracranial abnormality. Motion d egraded exam. No restricted diffusion to suggest acute or subacute infarct. Partially empty sella. No pathologic blooming artifact. No acute intracranial hemorrhage, midline shift, abnormal extra-axial collection, hydrocephalus or intra-axial mass. Age-related involutional changes. Mild patchy T2/FLAIR hyperintense foci throughout the white matter suggest chronic microvascular ischemic disease. There is no abnormal intra-axial or extra-axial enhancement. Cerebral venous sinuses and major arterial flow voids are patent. Right greater than left mastoid effusions. Mild mucosal thickening of the paranasal sinuses. The skull, orbits and soft tissues are unremarkable. Prior bilateral lens repair. IMPRESSION: 1. No acute intracranial abnormality. No acute or subacute infarct. 2. Involutional changes with mild chronic microvascular ischemic disease. 3. No abnormal enhancement. 4. Moderate mastoid effusions. ACT 112: Negative or not required by law. The above report was generated using voice recognition software. It may contain grammatical, syntax or spelling errors. Electronically signed by: Bennie Tyler M.D. 02/14/2021 12:47 PM Hospital Course (1) TIA (transient ischemic attack): (2) Rheumatoid arthritis: (3) HTN (hypertension): (4) Abnormal CT lung screenin-year-old man presented to the ER after an episode of slurred speech and difficulty with word finding. This reportedly resolved by the time of EMS arrival to the home. There was no other evidence of strokelike symptoms. NIH SS scale was 0 on arrival to the ER. He was given aspirin 324 and some IV fluids and admitted to the medicine team. Work-up included a CTA of the head and neck revealing no high-grade stenosis. MRI of the brain revealed generalized cerebral atrophy with ventriculomegaly consistent with hydrocephalus syphilis ex vacuo. Diffusion-weighted imaging revealed no evidence of acute stroke. T2 flair imaging coronal's showed mild to minimal subcortical white matter changes. There was a T2 hyperintensity noted in the periventricular area on the left which was nonspecific. Overall there was no acute or subacute area evidence of infarct. There was no acute intracranial abnormality. Neurology was consulted and recommended that his brief episode of expressive aphasia was concerning for possible transient ischemic attack. Blood pressure control was recommended including dual antiplatelet therapy for 21 days with de-escalation to baby aspirin indefinitely for secondary stroke prevention. Lipitor 40 mg daily also recommended. An echocardiogram with bubble study revealed no evidence of interatrial shunt with a normal left ventricular systolic function and an ejection fraction of 55 to 60%. Right ventricular systolic function was normal. There was aortic valve sclerosis that was moderate without significant aortic valvular stenosis. Neurology follow-up in 2 to 3 months was recommended with [facility] neurology. At time of discharge he was mentating and ambulating at baseline. He had been screened by physical and Occupational Therapy with recommendations to return home. He was tolerating p.o. and swallowing with no difficulties. He was able to find words with complete resolution of symptoms. was at bedside and agreed he was back to baseline. He was discharged in stable condition with close primary care follow-up recommended. By CMS guidelines, a determination that the admission or continued stay is not medically necessary has been made by a member of the Utilization Review committee and a physician for this hospital stay. Therefore, a Code 44 will be completed and the inpatient admission will be changed to outpatient. DO Eric Total Time Total Time Spent Total Time Spent (In Minutes): 60 Discharge Plan Discharge Items Patient Disposition: Home - Self-Care Reason For Visit: CONFUSION,WORD FINDING DIFFICULTY Discharge Diagnosis: TIA Condition on Discharge: Good Activity: Resume your previous activity Non-emergency contact: Primary Care Provider and Neurologist Call non-emergency contact if: you have any medication questions and your symptoms worsen Follow-up/Referrals: Mark Oconnor MD [Primary Care Provider] - Diet: Heart Healthy Diet Texture: Easy to Chew Addtl Attending Provider Instructions: Please take all medications as indicated discharge list below. You have been started on a new blood pressure medication as your blood pressure was high in the hospital. And ensure referral/follow-up appointment with neurology as outpatient. An outpatient event monitor to ensure no underlying arrhythmia is present may also be considered and provided by her primary care doctor. You have been placed on 3 new medications to take as follows. Please continue dual antiplatelet therapy (DAPT) with baby aspirin and clopidogrel for a total of 21 days. After this time please stop the clopidogrel and continue with baby aspirin indefinitely for secondary prophylaxis of stroke. Medical therapy to help prevent future strokes also includes atorvastatin at the dose provided. Please follow-up with your primary care doctor within 1 week of the hospital discharge to ensure you are still doing well on current medical therapies, repeat your blood pressure in the office. On one of your imaging studies there was some nonspecific changes in the right upper lobe of the lung. In the absence of respiratory symptoms the etiology of this is unclear. Recommend primary care follow-up for further investigation as needed and a repeat imaging in the next couple of weeks. It was a pleasure taking care of you! Please call if you have any questions or problems. You can reach a [facility] hospitalist on duty at [facility] 24 hours a day by calling [phone]. Take care of yourself. Marlys Reyes, DO [facility] Pending Studies at Discharge: No Stand-Alone Forms: Medications to Prevent Stroke, My [facility] Medications and DC Order Prescriptions: New aspirin [Aspirin Low Dose] 81 mg tablet,delayed release (DR/EC) 81 mg PO DAILY Qty: 90 RF: 0 clopidogrel [Plavix] 75 mg tablet 75 mg PO DAILY Qty: 21 RF: 0 atorvastatin [Lipitor] 40 mg tablet 40 mg PO HS Qty: 30 RF: 0 amlodipine 5 mg tablet 5 mg PO DAILY Qty: 30 RF: 0 Continued amoxicillin 500 mg capsule 2,000 mg PO UD RF: 0 buspirone 5 mg tablet 5 mg PO BID RF: 0 prednisone 5 mg tablet 5 mg PO DAILY RF: 0 acetaminophen [Tylenol Arthritis Pain] 650 mg Tablet Extended Release 650 mg PO Q8H PRN (Reason: Fever Or Pain) RF: 0 calcium carbonate 600 mg calcium (1,500 mg) Tablet 600 mg PO DAILY RF: 0 famotidine [Pepcid] 20 mg Tablet 20 mg PO BID RF: 0 methotrexate sodium 2.5 mg tablet 10 mg PO WK RF: 0 hydrocortisone-acetic acid [VoSol-HC] 1-2 % Drops 5 drp OTIC (EAR) BID PRN (Reason: ..) RF: 0 ferrous sulfate [iron] 325 mg (65 mg iron) Tablet 325 mg PO DAILY RF: 0 ropinirole 0.5 mg Tablet 0.5 mg PO HS RF: 0 folic acid 1 mg Tablet 1 mg PO [id number] RF: 0 fluorouracil 0.5 % Cream 1 applic TOPICAL BID PRN (Reason: flare ups) RF: 0 ciprofloxacin-dexamethasone [Ciprodex] 0.3-0.1 % Drops,Suspension 4 drp OTIC (EAR) BID PRN (Reason: ..) RF: 0 cholecalciferol (vitamin D3) [Vitamin D3] 25 mcg (1,000 unit) Tablet 25 mcg PO DAILY RF: 0 Discontinued ibuprofen 200 mg Tablet 200 mg PO Q4 PRN (Reason: Pain) RF: 0 Discharge Orders: Discharge Order (Routine); Ordered 02/14/21 Ordered By: Marlys Reyes Admission Data Admit Date/Time: 02/14/21 03:42 Attending Provider: Marlys Reyes Admit Provider: Abdoul Rodriguez Primary Care Provider: Mark Oconnor Other Providers: Abdoul Rodriguez ; Mary Kate Mayorga
[2021-02-14] MEDS ORDERED: STROKE PATIENT DISCHARGE STA (16:44)
--- NOTE | 2021-02-14 16:47 | Communication Note ---
Date of Service: February 14, 2021 Code 44 documentation: 89-year-old with significant medical problems as mentioned in H&P was admitted with TIA-like symptoms which resolved subsequently. He was seen by neurologist and managed appropriately by the attending physician. He was discharged home in a stable medical condition. By CMS guidelines, a determination that the admission or continued stay is not medically necessary has been made by a member of the UR committee and a physician for this hospital stay, therefore a Code 44 will be completed and the Inpatient admission will be changed to outpatient. Dr Disha Hill Member UR Committee
[2021-02-14] MEDS ORDERED: rOPINIRole HCL 0.25 MG TABLET PO SCH (21:00)
[2021-02-15] MEDS ORDERED: FOLIC ACID 1 MG TAB PO SCH (09:00)
== END 2021-02-14 18:24 | disposition home or self-care (01) ==
LOC: ED 23:45 → EDINP 02-14 03:42 → INTOOBSV 02-14 03:42 → SUATTDRO 02-14 03:42 → EDINP 02-14 06:17 → 2N 02-14 15:49